=== PATIENT | male | born 1970 | race African-American/Black ===

== ENCOUNTER 2017-10-31 09:11 | Inpatient (IN) | payer SELFPAY ==
[2017-10-31 09:58] LABS: ADD MAN DIFF? NO
[2017-10-31 10:01] LABS: BASO % 1 % (0-3); EOS # 0.1 x10^3/uL (0.0-0.7); EOS % 1 % (0-3); HEMOGLOBIN 15.3 g/dL (13.0-17.5); LYMPH # 2.4 x10^3/uL (1.0-4.8); LYMPH % 28 % (24-48); MEAN CORPUSCULAR HEMOGLOBIN 27 pg (25-35); MEAN CORPUSCULAR HGB CONC 33 g/dL (31-37); MEAN CORPUSCULAR VOLUME 84 fL (79-100); MONO # 0.9 x10^3/uL (0.0-1.1); MONO % 11 % (0-9); NEUT % 59 % (31-73); PLATELET COUNT 212 x10^3/uL (140-400); RED BLOOD COUNT 5.61 x10^6/uL (4.30-5.70); RED CELL DISTRIBUTION WIDTH 15.2 % (11.5-14.5); WHITE BLOOD COUNT 8.3 x10^3/uL (4.0-11.0)
[2017-10-31 10:15] LABS: ANION GAP 10 (6-14); BLOOD UREA NITROGEN 11 mg/dL (8-26); CALCIUM 9.1 mg/dL (8.5-10.1); CARBON DIOXIDE 29 mmol/L (21-32); CHLORIDE 105 mmol/L (98-107); CREATININE 1.2 mg/dL (0.7-1.3); GFR 65.5; GLUCOSE 122 mg/dL (70-99); POTASSIUM 3.9 mmol/L (3.5-5.1); SODIUM 144 mmol/L (136-145)
[2017-10-31 10:21] LABS: ALBUMIN 3.6 g/dL (3.4-5.0); ALK PHOS 133 U/L (46-116); ALT (SGPT) 36 U/L (16-63); AST (SGOT) 23 U/L (15-37); DIRECT BILIRUBIN < 0.1 mg/dL (0.0-0.2); TOTAL BILIRUBIN 0.3 mg/dL (0.2-1.0); TOTAL PROTEIN 8.1 g/dL (6.4-8.2)
[2017-10-31 10:22] LABS: TROPONINI < 0.017 ng/mL (0.000-0.055)
[2017-10-31 10:33] LABS: CKMB MASS < 0.5 ng/mL (0.0-3.6); CREATINE KINASE 223 U/L (39-308)
[2017-10-31 10:33] LABS: NT-PRO BNP 8 pg/mL (0-124)
[2017-10-31] MEDS: LABETALOL 20 MG/4 ML DISP.SYRIN. IVP ×2 (11:12→13:25)
[2017-10-31 11:28] LABS: THYROID STIM HORMONE (TSH) 1.073 uIU/mL (0.358-3.74)
[2017-10-31 11:37] LABS: BILIRUBIN,URINE NEGATIVE (NEG); CLARITY,URINE CLEAR; COLOR,URINE YELLOW; GLUCOSE,URINE NEGATIVE (NEG); NITRITE,URINE NEGATIVE (NEG); PROTEIN,URINE NEGATIVE (NEG-TRACE)
[2017-10-31 11:43] LABS: BARBITURATES NEG (NEG); BENZODIAZEPINES NEG (NEG); CANNABINOIDS NEG (NEG); COCAINE NEG (NEG); METHADONE NEG (NEG); OPIATES NEG (NEG); PHENCYCLIDINE NEG (NEG)
[2017-10-31 11:44] LABS: AMPHETAMINE/METHAMPHETAMINE NEG (NEG); ETHANOL, URINE NEG (NEG)
[2017-10-31 11:45] LABS: BACTERIA,URINE 0 /HPF (0-FEW); RBC,URINE 0 /HPF (0-2); SQUAMOUS EPITHELIAL CELL,UR FEW /LPF; WBC,URINE 0 /HPF (0-4)
[2017-10-31] MEDS ORDERED: ONDANSETRON PF 4 MG/2 ML VIAL. IV ×2 (12:45→19:15)
[2017-10-31] MEDS: hydroCHLOROthiazide 12.5 MG CAPSULE PO (15:35)
[2017-10-31] MEDS: LISINOPRIL 20 MG TABLET PO (15:36)
[2017-10-31] MEDS: amLODIPine BESYLATE 10 MG TABLET PO (15:37)
[2017-10-31 17:58] LABS: TROPONINI < 0.017 ng/mL (0.000-0.055)
[2017-10-31 19:10] LABS: TROPONINI < 0.017 ng/mL (0.000-0.055)
[2017-10-31] MEDS ORDERED: MORPHINE SULFATE 4 MG/ML DISP.SYRIN. IV (19:15)
[2017-10-31] MEDS ORDERED: hydrALAZINE 20 MG/ML VIAL. IVP (19:15)
[2017-10-31] MEDS ORDERED: traMADol 50 MG TABLET PO (19:15)
[2017-10-31] MEDS ORDERED: DOCUSATE SODIUM 100 MG CAPSULE. PO (19:15)
[2017-10-31] MEDS: ACETAMINOPHEN 325 MG TABLET. PO (20:31)
[2017-10-31] MEDS: ENOXAPARIN 40 MG/0.4 ML SYRINGE. SQ (20:32)
[2017-11-01 04:48] LABS: ANION GAP 7 (6-14); BLOOD UREA NITROGEN 13 mg/dL (8-26); CARBON DIOXIDE 31 mmol/L (21-32); CHLORIDE 104 mmol/L (98-107); CREATININE 1.4 mg/dL (0.7-1.3); GFR 66.3; GLUCOSE 108 mg/dL (70-99); POTASSIUM 3.8 mmol/L (3.5-5.1); SODIUM 142 mmol/L (136-145)
[2017-11-01 05:00] LABS: CHOLESTEROL 252 mg/dL (0-200); HDLC 84 mg/dL (40-60); LDLC 154 mg/dL (0-100); NON-HDL CHOLESTEROL 168 mg/dL (0-129); TRIGLYCERIDES 72 mg/dL (0-150); VLDLC 14 mg/dL (0-40)
[2017-11-01 07:30] LABS: ADD MAN DIFF? NO
[2017-11-01 07:33] LABS: BASO # 0.1 x10^3/uL (0.0-0.2); BASO % 1 % (0-3); EOS # 0.2 x10^3/uL (0.0-0.7); EOS % 2 % (0-3); HEMATOCRIT 45.2 % (39.0-53.0); HEMOGLOBIN 14.4 g/dL (13.0-17.5); LYMPH # 3.3 x10^3/uL (1.0-4.8); LYMPH % 38 % (24-48); MEAN CORPUSCULAR HEMOGLOBIN 27 pg (25-35); MEAN CORPUSCULAR HGB CONC 32 g/dL (31-37); MEAN CORPUSCULAR VOLUME 84 fL (79-100); MONO # 0.9 x10^3/uL (0.0-1.1); MONO % 10 % (0-9); NEUT # 4.2 x10^3uL (1.8-7.7); NEUT % 49 % (31-73); PLATELET COUNT 199 x10^3/uL (140-400); RED BLOOD COUNT 5.36 x10^6/uL (4.30-5.70); RED CELL DISTRIBUTION WIDTH 15.8 % (11.5-14.5); WHITE BLOOD COUNT 8.6 x10^3/uL (4.0-11.0)
[2017-11-01] MEDS: FOLIC ACID 1 MG TABLET. PO (09:17)
[2017-11-01] MEDS: amLODIPine BESYLATE 10 MG TABLET PO (09:17)
[2017-11-01] MEDS: THIAMINE 100 MG TABLET. PO (09:17)
[2017-11-01] MEDS: hydroCHLOROthiazide 12.5 MG CAPSULE PO (09:17)
[2017-11-01] MEDS: LISINOPRIL 20 MG TABLET PO (09:18)
[2017-11-01] MEDS: ACETAMINOPHEN 325 MG TABLET. PO (12:35)
[2017-11-01] MEDS: ENOXAPARIN 40 MG/0.4 ML SYRINGE. SQ (20:00)
[2017-11-02 05:28] LABS: ADD MAN DIFF? NO
[2017-11-02 05:31] LABS: BASO % 0 % (0-3); EOS # 0.1 x10^3/uL (0.0-0.7); EOS % 2 % (0-3); HEMATOCRIT 44.9 % (39.0-53.0); HEMOGLOBIN 14.4 g/dL (13.0-17.5); LYMPH # 2.4 x10^3/uL (1.0-4.8); LYMPH % 30 % (24-48); MEAN CORPUSCULAR HEMOGLOBIN 27 pg (25-35); MEAN CORPUSCULAR HGB CONC 32 g/dL (31-37); MEAN CORPUSCULAR VOLUME 84 fL (79-100); MONO # 0.9 x10^3/uL (0.0-1.1); MONO % 11 % (0-9); NEUT # 4.5 x10^3uL (1.8-7.7); NEUT % 57 % (31-73); PLATELET COUNT 194 x10^3/uL (140-400); RED BLOOD COUNT 5.35 x10^6/uL (4.30-5.70); RED CELL DISTRIBUTION WIDTH 15.4 % (11.5-14.5); WHITE BLOOD COUNT 7.9 x10^3/uL (4.0-11.0)
[2017-11-02 06:04] LABS: ALBUMIN/GLOBULIN RATIO 0.8 (1.0-1.7); ALK PHOS 108 U/L (46-116); ALT (SGPT) 29 U/L (16-63); ANION GAP 8 (6-14); AST (SGOT) 15 U/L (15-37); BLOOD UREA NITROGEN 15 mg/dL (8-26); BUN/CREATININE RATIO 12 (6-20); CALCIUM 8.8 mg/dL (8.5-10.1); CARBON DIOXIDE 29 mmol/L (21-32); CHLORIDE 103 mmol/L (98-107); CREATININE 1.3 mg/dL (0.7-1.3); GFR 72.2; GLUCOSE 114 mg/dL (70-99); POTASSIUM 3.9 mmol/L (3.5-5.1); SODIUM 140 mmol/L (136-145); TOTAL BILIRUBIN 0.5 mg/dL (0.2-1.0); TOTAL PROTEIN 6.9 g/dL (6.4-8.2)
[2017-11-02 06:11] LABS: MAGNESIUM 2.1 mg/dL (1.8-2.4)
[2017-11-02] MEDS: THIAMINE 100 MG TABLET. PO (08:39)
[2017-11-02] MEDS: hydroCHLOROthiazide 12.5 MG CAPSULE PO (08:39)
[2017-11-02] MEDS: amLODIPine BESYLATE 10 MG TABLET PO (08:41)
[2017-11-02] MEDS: LISINOPRIL 20 MG TABLET PO (08:46)
[2017-11-02] MEDS: FOLIC ACID 1 MG TABLET. PO (08:46)
== END 2017-11-02 12:54 | disposition home or self-care (01) | DRG 305 ==
LOC: ER 09:11 → 5 NORTH 12:22
DX: I16.0 Hypertensive urgency (principal); E66.01 Morbid (severe) obesity due to excess calories; I15.8 Other secondary hypertension; F10.20 Alcohol dependence, uncomplicated; Z68.38 Body mass index [BMI] 38.0-38.9, adult; M19.90 Unspecified osteoarthritis, unspecified site; E11.9 Type 2 diabetes mellitus without complications; Z80.3 Family history of malignant neoplasm of breast; Z82.49 Family history of ischemic heart disease and other diseases of the circulatory system; Z91.19 Patient's noncompliance with other medical treatment and regimen
CPT/HCPCS: 36415; 71045; 80048; 80053; 80061; 80076; 80307; 81001; 82553; 83735; 83880; 84443; 84484; 85025; 93005; 93306; 99285; 99285-25; J1650; J2060; J3490